=== PATIENT | male | born 1955 | race Caucasian/White ===

== ENCOUNTER 2025-02-08 14:54 | Emergency (ER) | payer MEDICARE, SELFPAY ==
--- NOTE | 2025-02-08 15:01 | ECG_ITS ---
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 Measurements Intervals [place] Rate: 88 P: 51 HI: 224 QRS: 11 QRSD: 154 T: 145 QT: 398 QTc: 482 Interpretive Statements SINUS RHYTHM WITH FIRST DEGREE AV BLOCK POSSIBLE LEFT ATRIAL ENLARGEMENT [-0.1mV P-WAVE IN V1/V2] LEFT BUNDLE BRANCH BLOCK [120+ ms QRS DURATION, 80+ ms Q/S IN V1/V2, 85+ ms R IN I/aVL/V5/V6] No previous ECG available for comparison Electronically Signed On 02-08-2025 21:51:38 SENIOR ACCOUNT EXECUTIVE by Tiffany Tyson M.D. [email or web address]
--- NOTE | 2025-02-08 15:01 | XR_ITS ---
WS: [id number] Portable AP upright chest, 02/08/2025 Clinical Data: Weakness Comparison: None. Findings: No nodules, masses or effusions are seen. The heart is normal. The pulmonary vascularity is not increased. No pneumonia or pneumothorax is seen. Midline sternotomy sutures are present and there is an artificial aortic valve. The descending thoracic aorta shows tortuosity. XR/XR chest 1V portable [id number] Impression: Atherosclerosis and artificial cardiac valve.
[2025-02-08 15:02] VITALS: BP 181/102; PULSE 91; TEMP 36.9; O2SAT 96; BMI 25.8
--- OUTSIDE RECORDS SUMMARY | 2025-02-08 15:04 | XMS_ITS ---
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 Past Treatment and Therapy Plans No past plan information found. Lifetime Dose Tracking * Chemical Lifetime Dose Automatic Entry Manual Entr y Radiation Dose Length Product 2,434.69 DLP 2,228.86 DL P 205.83 DLP
--- OUTSIDE RECORDS SUMMARY | 2025-02-08 15:04 | XMS_ITS | Clinical Summary ---
Author Organization [employer] Address [address] [place] [address] Care Team Providers Care Software Analyst Name Role Phone AsaEpi charles Primary Care Provider [phone] Source Comments This disclosure is being made pursuant to the [employer] program and maynot contain all information available regarding this patient.[employer] Allergies Active Allergy Reactions Criticality Noted Date Comments Bee Venom Swelling High 10/20/2024 Plegisol Anaphylaxis High 10/20/2024 Penicillins Swelling High 01/24/2017 Medications aspirin 81 MG EC tablet Take 81 mg by mouth daily. Active glucose blood test stripIndications:T ype 2 diabetes mellitus without complication, without long-term current use of insulin 1 (one) each by Other route daily. 100 each 3 01/17/20 Active Lancets MISCIndications:Ty pe 2 diabetes mellitus without complication, without long-term current use of insulin 1 (one) each by Other route daily. 100 each 3 01/17/20 Active Blood Glucose Monitoring Suppl DEVIIndications:Ty pe 2 diabetes mellitus without complication, without long-term current use of insulin 1 Device daily. 1 each 01/17/20 23 Active semaglutide, 2 MG/dose, (Ozempic, 2 MG/DOSE,) 8 MG/3ML injectionIndicatio ns:Type 2 diabetes mellitus with hyperglycemia, without long-term current use of insulin Inject 2 (two) mg into the skin once a week. 3 mL 03/17/20 25 Active fenofibrate (TRICOR) 54 MG tablet TAKE TWO TABLETS BY MOUTH EVERY DAY 180 tablet 3 08/21/19 25 Active warfarin (COUMADIN) 3 MG tabletIndications: Mechanical heart valve present,snf (current) use of anticoagulants TAKE ONE TABLET BY MOUTH EVERY DAY EXCEPT TAKE TWO TABLETS ON FRIDAY, FRIDAY, AND FRIDAY 36 tablet 11 09/01/19 25 Active losartan (COZAAR) 100 MG tabletIndications: Type 2 diabetes mellitus without complication, without long-term current use of insulin,Hypertensi on, unspecified type TAKE ONE TABLET BY MOUTH EVERY DAY 90 tablet 3 11/30/19 25 Active metformin (GLUCOPHAGE) 1000 MG tabletIndications: Type 2 diabetes mellitus without complication, without long-term current use of insulin Take 1 (one) tablet (1,000 mg total) by mouth 2 (two) times daily with meals. 180 tablet 3 12/28/19 25 Active carbidopa-levodopa (SINEMET) 25-100 MG per tablet 1 TABLET BY MOUTH 3 TIMES A DAY AT LEAST 30 MIN. BEFORE MEALS 270 tablet 01/04/20 25 Active glimepiride (AMARYL) 4 MG tablet TAKE TWO TABLETS BY MOUTH EVERY DAY 180 tablet 02/01/20 25 Active atorvastatin (LIPITOR) 80 MG tabletIndications: Hyperlipidemia, unspecified hyperlipidemia type TAKE ONE TABLET BY MOUTH AT BEDTIME 90 tablet 3 02/08/20 25 Active atorvastatin (LIPITOR) 80 MG tabletIndications: Hyperlipidemia, unspecified hyperlipidemia type TAKE ONE TABLET BY MOUTH AT BEDTIME 90 tablet 3 02/19/20 24 025 Discontinued glimepiride (AMARYL) 4 MG tablet TAKE TWO TABLETS BY MOUTH EVERY DAY 180 tablet 11/04/19 25 025 Discontinued Active Problems Problem Noted Date Diagnosed Date Bacteremia due to group B Streptococcus 10/22/19 25 Pyelonephritis 10/20/2024 Sepsis without acute organ dysfunction Parkinson's disease without dyskinesia or fluctuating manifestations 01/08/2024 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 snf (current) use of anticoagulants 2020 Mechanical heart valve present 11/08/2020 Prostate cancer 02/05/2011 Hypertension Hyperlipidemia Diabetes mellitus Encounters Date Type Department Care Team Description 02/06/2025 Refill [facility] [address] [place] [address] Epi Elder, DO Hyperlipidemia, unspecified hyperlipidemia type 02/02/2025 Telephone [facility] [address] [place] [address] Bren Cox, RN Telephone Call 01/29/2025 Refill [facility] [address] [place] [address] Epi Elder, DO 01/26/2025 Telephone [facility] [address] [place] [address] Rossy Arce, MATA Telephone Call 01/25/[address] [place] [address] Georgia Copeland Care Coordination 01/19/2025 Telephone [facility] [address] [place] [address] Rossy Arce, MATA Telephone Call 01/12/2025 Telephone [facility] [address] [place] [address] Rossy Arce, RN Telephone Call 01/03/[address] [place] [address] Terry Mancuso, CERTIFIED NURSING ATTENDANT Results [facility] [address], [address] [place] [address] Karen Alcocer MD 12/30/2024 2:30 PM CDT Procedure visit [facility] [address] [place] [address] Denis Clifford MD Bladder wall thickening (Primary Dx) 12/29/2024 Telephone [facility] [address] [place] [address] Bren Cox, RN Telephone Call 12/29/2024 Telephone [place] [address] [place], [place] [address] Vilma Blanco, PharmD Medication Management (Ozempic refill through [facility]) 12/29/2024 Telephone [place] [address] [place] [address] Rossy Arce, MATA Telephone Call 12/28/2024 8:33 AM CDT - 12/28/2024 11:59 PM CDT Hospital Encounter [facility] [address] [place] [address] [place] [address] Type 2 diabetes mellitus with other specified complication, without long-term current use of insulin; Primary hypertension; Prostate cancer Discharge Disposition: Home - Discharge to Home or Self Care 12/27/2024 1:00 PM CDT Office Visit [address] [address] Epi Elder, Type 2 diabetes mellitus with other specified complication, without long-term current use of insulin (Primary Dx); Warfarin anticoagulation; Supratherapeutic INR; Type 2 diabetes mellitus without complication, without long-term current use of insulin; 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] 12/27/2024 Travel 12/22/2024 Telephone [place] [address] [place] [address] Rossy Arce, MATA Telephone Call 12/15/2024 Telephone [place] [address] [place], [place] [address] Bren Cox, RN Telephone Call 12/10/2024 Results Follow-Up [address], [place] [address] Epi Elder DO Cologuard, Lipid panel, CBC and differential, Additional followed-up results: 3 12/08/2024 Telephone [place] [address] [place] [address] Bren oCx, RN Telephone Call 12/02/2024 10:00 AM CDT Initial consult [facility] [address] [place] [address] Denis Clifford MD Bladder wall thickening (Primary Dx) 12/01/2024 Travel 12/01/2024 Telephone [facility] [address] [place] [address] Bren Cox, RN Telephone Call 11/29/[address] [place] [address] Georgia Copeland Care Coordination 11/29/2024 Refill [facility] [address] [place] [address] Epi Elder, Type 2 diabetes mellitus without complication, without long-term current use of insulin; Hypertension, unspecified type 11/24/2024 Telephone [facility] [address] [place] [address] Georgia Copeland Care Coordination 11/24/2024 Telephone [facility] [address] [place] [address] Rossy Arce, MATA Telephone Call 11/23/[address] [place] [address] Georgia Copeland Care Coordination 11/17/2024 Telephone [facility] [address] [place] [address] Rossy Arce, MATA Telephone Call 11/11/2024 Telephone [facility] [address] [place] [address] Peggy Kim, RN Care Coordination from Last 3 Months Immunizations Immunization Administration Dates Next Due COVID-19 (MODERNA) mRNA ages 12+ 07/06/2020,03/0 08/2020 Influenza (FLUZONE HIGH-DOSE) IIV3 02/02/2024 Influenza (FLUZONE) IIV4, mu lti-dose vial 04/11/2022 Influenza (FLUZONE) Inactiva phil, Trivalent, 6 months and older, multi-dose vial 0.5 mL 12/16/2013,12/30/2012,12/11/2011,2009 Influenza, Inactivated, Quad rivalent, ALL AGES 6 months and older, multi-dose vial 01/09/2016 Influenza, inactivated, quad rivalent, 3 years and older, single dose syringe/vial 01/09/2016,12/16/2013,12/30/2012,2011,12/19/2009 Influenza, inactivated, quad rivalent, ALL AGES 6 months and older, single dose syringe/vial 11/27/2018,01/06/2018,01/08/2017,2014 Influenza, unspecified formulation 11/27,01/06/2018,01/08/2017,2015,01/19/2015,12/16/2013,12/30/2012,0 12/11/2011,12/19/2009 LIVE Zoster (Zostavax) ZVL 08/12/2012 Pneumococcal Conjugate-20 (P revnar 20) PCV20 12/28/2021 Pneumococcal Polysaccharide- 23 (Pneumovax 23) PPSV23 09/14/2014 Tdap 12/30/2012 Zoster (Shingrix) RZV 07/09/2018,03/18/2018 Family History Medical History Relation Name Comments Diabetes Father Heart disease Father Alzheimer's disease Mother Relation Name Status Comments Father Mother Social History Tobacco Use Types Packs/Day Years Used Date Smoking Tobacco: Never Smokeless Tobacco: Never Tobacco Cessation:Counseling Given: Not Answered Alcohol Use Standard Drinks/Week Comments Not Currently 0 (1 standard drink = 0.6 oz pur e alcohol) rarely PHQ-2 Answer Date Recorded PHQ-2 Total Score 0 12/27/2024 [place] Depression Scale Answer Date Recorded P[place] Depression Scale Total 0 10/20/2024 The thought of harming myself has occurred to me . Never 10/20/2024 Humiliation, Afraid, Rape, and Kick questionnair e Answer Date Recorded Within the last year, have y ou been afraid of your partner or ex-partner? No 10/20/2024 Within the last year, have y ou been humiliated or emotionally abused in other ways by your partner or ex-partner? No Within the last year, have y ou been kicked, hit, slapped, or otherwise physically hurt by your partner or ex-partner? No 10/20/2024 Within the last year, have y ou been raped or forced to have any kind of sexual activity by your partner or ex-partner? No 10/20/2024 Social Connection and Isolation Panel Answer Date Recorded In a typical week, how many times do you talk on the phone with family, friends, or neighbors? More than three times a week 10/20/2024 How often do you get togethe r with friends or relatives? Three times a week 10/20/2024 How often do you attend chur or church services? Never 10/20/2024 Do you belong to any clubs o r organizations such as methodist groups, unions, fraternal or athletic groups, or school groups? Yes 10/20/2024 How often do you attend meet ings of the clubs or organizations you belong to? More than 4 times per year 10/20/2024 Are you , , di vorced, , never , or living with a partner? 10/20/2024 AUDIT-C Answer Date Recorded Q1: How often do you have a drink containing alcohol? Never 10/20/2024 Q2: How many drinks containi ng alcohol do you have on a typical day when you are drinking? Patient does not drink Q3: How often do you have si x or more drinks on one occasion? Never 10/20/2024 Overall Financial Resource Strain (CARDIA) Answe r Date Recorded How hard is it for you to pa y for the very basics like food, housing, medical care, and heating? Not hard at all 10/20/2024 [facility] Occup[facility] ional [facility] - Occupational Stress Questionnaire Answer Date Recorded Do you feel stress - tense, restless, nervous, or anxious, or unable to sleep at night because your mind is troubled all the time - these days? Not at all 10/20/2024 Exercise Vital Sign Answer Date Recorde d On average, how many days pe r week do you engage in moderate to strenuous exercise (like a brisk walk)? 3 days 10/20/2024 On average, how many minutes do you engage in exercise at this level? 60 min 10/20/2024 Hunger Vital Sign Answer Date Recorded Within the past 12 months, y ou worried that your food would run out before you got the money to buy more. Never true 10/21/19 25 Within the past 12 months, t he food you bought just didn't last and you didn't have money to get more. Never true 10/20/2024 PRAPARE - Transportation Answer Date Re corded In the past 12 months, has l ack of transportation kept you from medical appointments or from getting medications? No 10/05 In the past 12 months, has l ack of transportation kept you from meetings, work, or from getting things needed for daily living? No 10/20/2024 Housing Stability Vital Sign Answer Casa e Recorded In the last 12 months, was t here a time when you were not able to pay the mortgage or rent on time? No 10/20/2024 In the past 12 months, how m any times have you moved where you were living? 0 10/20/2024 At any time in the past 12 m [facility], were you homeless or living in a [facility] (including now)? No 10/20/2024 [facility] Utilities Answer Date Recorded In the past 12 months has th e electric, gas, oil, or water company threatened to shut off services in your home? No 10/20/2024 Sex and Gender Information Value Date Recorded Sex Assigned at Not on file Legal Sex Male 5:04 AM CDT Gender Identity Not on file Sexual Orientation Not on file Occupation Industry Job Start Date Job End Date Not on file Not on file Not on file Not on file Last Filed Vital Signs Vital Sign Reading Time Taken Comments Blood Pressure 128/72 12/30/2024 2:26 PM CDT Pulse 88 12/30/2024 2:26 PM CDT Temperature 36.3 C (97.3 F) 12/30/2024 2:26 PM CDT Respiratory Rate 18 12/30/2024 2:26 PM CDT Oxygen Saturation 97% 12/30/2024 2:26 PM CDT Inhaled Oxygen Concentration - - Weight 74.4 kg (164 lb) 12/30/2024 2:26 PM CDT Height 172.7 cm (5' 8 ) 12/30/2024 2:26 PM CDT Body Mass Index 24.94 12/30/2024 2:26 PM CDT Plan of Treatment Upcoming Encounters Date Type Department Care Team (Late st Contact Info) Description 03/28/2025 9:00 AM AG SERVICE MANAGER Appointment [facility] [address] [place] [address] Epi Elder, DO [address] [place] [address] Health Maintenance Due Date Last Done Comments CT Colonography 1956 Colonoscopy 1956 Sigmoidoscopy 1956 FOBT/FIT 1976 Tetanus/Pertussis Vaccine Teen/Adult (2 - Td or Tdap) 12/30/2022 12/30/2012 First Medicare Annual Wellness (AWV) 07/02/2024 COVID-19 Vaccine ( season) 2024 07/06/2020, 06/09/2020 Influenza Vaccine (#1) 2024 , 04/11/2022, 11/27/2018, Additional history exists Foot Exam 02/01/2025 02/02/2024, 11/07, 12/28/2021, Additional history exists Lab-HgA1C 06/26/2025 12/27/2024, 09/06, 06/24/2024, Additional history exists Lab-Lipids 12/28/2025 12/28/2024, 12/07, 07/12/2022, Additional history exists Lab-Urine Microalbumin 12/28/2025 , 12/29/2023, 07/12/2022, Additional history exists Eye (Ophthalmology) Exam 06/05/2026 025, 03/12/2023, 09/03/2022, Additional history exists Colorectal Cancer Screening 12/03/2027 Fecal DNA Test 12/03/2027 12/02/2024, 11/06, 09/27/2021 RSV Adult (1 - 1-dose 75+ series) 08/10/2031 Zoster (Shingles) Vaccine 50+ Completed 07/09/2018, 03/18/2018, 08/12/2012 Lab-Hepatitis C Screening Completed 03/24/2019 Pneumococcal Vaccines 50+ Completed 12/28/2021, 01/2015 HIB Vaccine Aged Out No longer eligi ble based on patient's age to complete this topic HPV Vaccine (9-26yo & Shared Decision 27-45yo) Aged Out No longer eligible based on patient's age to complete this topic Hepatitis A Vaccine Aged Out No longe r eligible based on patient's age to complete this topic IPV Vaccine Aged Out No longer eligi ble based on patient's age to complete this topic Meningococcal Conjugate Vaccine Aged Out No longer eligible based on patient's age to complete this topic RSV < 20 Months Aged Out No longer el igible based on patient's age to complete this topic Goals Goal Patient Goal Type Associated Problems Recent Progress Patient-Stated? Author Blood Pressure < 140/90 Blood Pressure 128/72(12/30 2:26 PM CDT) No Lino Cox PA-C HEMOGLOBIN A1C < 7.0 Result Component No Mil Black RN Results - Maintain INR in 2.5-3.5 range Self-Managemen t No Renetta Boston RN Procedures Procedure Name Priority Date/Time Associated Diagnosis Comments OUTSIDE LAB SCANNED RESULT 02/04/2025 12:00 AM CDT OUTSIDE LAB SCANNED RESULT 02/02/2025 12:00 AM CDT OUTSIDE LAB SCANNED RESULT 01/26/2025 12:00 AM CDT OUTSIDE LAB SCANNED RESULT 01/19/2025 3:34 PM CDT OUTSIDE LAB SCANNED RESULT 01/12/2025 12:43 PM CDT OUTSIDE LAB SCANNED RESULT 01/06/2025 12:00 AM CDT POCT URINALYSIS Routine 12/30/2024 2:33 PM CDT Bladder wall thickening OUTSIDE LAB SCANNED RESULT 12/29/2024 12:00 AM CDT OUTSIDE LAB SCANNED RESULT 12/29/2024 12:00 AM CDT PSA Routine 12/28/2024 8:35 AM CDT Prostate cancer MICROALBUMIN / CREATININE URINE RATIO Routine 12/28/2024 8:35 AM CDT Type 2 diabetes mellitus with other specified complication, without long-term current use of insulin COMPREHENSIVE METABOLIC PANEL Routine 12/28/2024 8:35 AM CDT Type 2 diabetes mellitus with other specified complication, without long-term current use of insulin Primary hypertension CBC AND DIFFERENTIAL Routine 12/28/2024 8:35 AM CDT Primary hypertension LIPID PANEL Routine 12/28/2024 8:35 AM CDT Type 2 diabetes mellitus with other specified complication, without long-term current use of insulin Primary hypertension POCT GLYCOSYLATED HEMOGLOBIN (HGB A1C) Routine 12/27/2024 1:00 PM CDT Type 2 diabetes mellitus with other specified complication, without long-term current use of insulin POCT INR/PROTIME Routine 12/27/2024 12:5 4 PM CDT Warfarin anticoagulation OUTSIDE LAB SCANNED RESULT 12/22/2024 12:00 AM CDT OUTSIDE LAB SCANNED RESULT 12/15/2024 12:00 AM CDT OUTSIDE LAB SCANNED RESULT 12/08/2024 12:00 AM CDT COLOGUARD Routine 12/02/2024 11:30 AM CDT Colon cancer screening POCT URINALYSIS Routine 12/02/2024 10:10 AM CDT Bladder wall thickening OUTSIDE LAB SCANNED RESULT 12/01/2024 12:00 AM CDT OUTSIDE LAB SCANNED RESULT 12/01/2024 12:00 AM CDT OUTSIDE LAB SCANNED RESULT 11/24/2024 12:40 PM CDT OUTSIDE LAB SCANNED RESULT 11/17/2024 12:00 AM CDT OUTSIDE LAB SCANNED RESULT 11/11/2024 10:55 AM CDT DIABETES EYE EXAM Routine 06/05/2024 HEPATITIS C ANTIBODY Routine 03/24/2019 9:00 AM AG SERVICE MANAGER Encounter for hepatitis C screening test for low risk patient from Last 3 Months or Most Recently Relevant to Health Maintenance Results * OUTSIDE LAB SCANNED RESULT (02/04/2025 12:00 AM CDT) Only the most recent of16 resultswithin the time period is included. 02/04/2025 Narrative 02/07/2025 1:07 PM AG SERVICE MANAGER Ordered by an unspecified provider. us Not In System Provider LAB Final Res ult * (ABNORMAL) POCT UA (12/30/2024 2:33 PM CDT) Only the most recent of2 resultswithin the time period is included. Color, UA Yellow [facility] Clarity or appearance, UA Clear Clear [facility] Glucose, UA negative negative mg/dL [facility] Bilirubin, UA negative negative, trace (5 mg/dL), high 4+ [facility] Ketones, UA negative negative, trace (5 mg/dL), high 4+ [facility] Specific [place],UA POC 1.020 1.003 - 1.029 [facility] Blood, UA negative negative, HGB 10, HGB 50, HGB 250, MILENA 5-10, MILENA 50, MILENA 250 [facility] pH, UA POC 6.0 5.0 - 8.5 [facility] Protein, UA POC 30 (1+)(A) negative mg/dL [facility] Urobilinogen , UA POC 0.2 0.20 - 1.00 [Andrey'U]/dL [facility] Nitrite POC Negative Negative, Indeterminate [facility] Leukocytes, UA negative negative, trace (5 mg/dL), high 4+ [facility] Urine 12/30/2024 2:33 PM CDT us Denis Clifford MD POINT OF CARE TEST ORDERABLE S Final Result [facility] * (ABNORMAL) Microalbumin / creatinine urine ratio (12/28/2024 8:35 AM CDT) Microalbumin UR 2.3(H) 0.0 - 1.9 mg/dL 12/28/2024 10:59 PM CDT [facility] Microalbumin Excretion Rate NOT APPLICABLE 0 - 20 mg/24HR 12/28/2024 10:59 PM CDT [facility]ology Laboratory Albumin Rate NOT APPLICABLE 0 - 30 ug/min 12/28/2024 10:59 PM CDT [facility] Laboratory Microalbumin/Cre at Ratio 20.4(H) <17 mg/g[cre at] 12/28/2024 10:59 PM CDT [facility] Laboratory Creatinine Urine 112.1 mg/dL 12/29/19 10:59 PM CDT [facility] Comment: Reference Range Not Established Performed at [facility]ology Laboratory, [address] [facility] [place] [id number] Serum URINE SPECIMEN / Unknown 12/28/2024 8:35 AM CDT 12/28/2024 8:37 AM CDT us Epi Elder DO URINE ORDERABLES Final Resu lt [facility] [address] [place] [address] [facility] [address] [facility] [place] [address] * (ABNORMAL) CBC and differential (12/28/2024 8:35 AM CDT) WBC 4.43 3.6 - 9.8 10*3/uL 12/28/2024 8:42 AM [facility] RBC 4.53 3.50 - 5.90 10*6/uL 12/28/2024 8:42 AM [facility] HGB 13.6 11.2 - 17.3 g/dL 12/28/2024 8:42 AM [facility] HCT 41.7 33 - 51 % 12/28/2024 8:42 AM [facility] MCV 92.1 83 - 99 fL 12/28/2024 8:42 AM [facility] MCH 30.0 28 - 34 pg 12/28/2024 8:42 AM [facility] MCHC 32.6(L) 33 - 36 g/dL 12/28/2024 8:42 AM [facility] Platelets 160 152 - 367 10*3/uL 12/28/2024 8:42 AM [facility] RDW-CV 13.8 10 - 15 % 12/28/2024 8:42 AM [facility] MPV 9.4 7.0 - 11.0 fL 12/28/2024 8:42 AM [facility] Differential Type AUTOMATED DIFFERENTIAL 12/28/2024 8:42 AM [facility] Neutrophil % 62.6 % 12/28/2024 8:42 AM [facility] Lymphocytes % 21.7 % 12/28/2024 8:42 AM [facility] Monocyte % 12.9 % 12/28/2024 8:42 AM [facility] Eosinophils Relative % 1.8 % 12/28/2024 8:42 AM [facility] Basophils % 0.5 % 12/28/2024 8:42 AM [facility] Neutrophils Absolute 2.78 2.0 - 5.7 10*3/uL 12/28/2024 8:42 AM [facility] Lymphocytes Absolute 0.96 0.7 - 3.9 10*3/uL 12/28/2024 8:42 AM CDT [facility] Monos Absolute 0.57 0.2 - 0.9 10*3/uL 12/28/2024 8:42 AM CDT [facility] Eosinophils Absolute Count 0.08 0.0 - 0.8 10*3/uL 12/28/2024 8:42 AM CDT [facility] Basophils Absolute 0.02 0.0 - 0.2 10*3/uL 12/28/2024 8:42 AM CDT [facility] Immature Granulocytes% 0.5 % 12/28/2024 8:42 AM CDT [facility] Immature Granulocytes Absolute 0.02 10*3/uL 12/28/2024 8:42 AM CDT [facility] Whole Blood 12/28/2024 8:35 AM CDT 12/28/2024 8:37 AM CDT us Epi Elder DO LAB BLOOD ORDERABLES Final Result Performing Organization Address City/[facility]/ZIP Co de Phone Number [facility] [address] [place] [address] [facility] [address] [place] [id number] * PSA (12/28/2024 8:35 AM CDT) [facility] Signature PSA <0.1 0.0 - 4.0 ng/mL 12/28/2024 9:35 AM CDT [facility] Comment:PSA assays cannot be used interchangeably. Results from individual patients can vary between assays because of assay methods, calibration, and reagent specificity. Serum 12/28/2024 8:35 AM CDT 12/28/2024 8:37 AM CDT us Epi Elder DO LAB BLOOD ORDERABLES Final Result [facility] [address] [place] [address], [place] [phone] [facility] [address] [place] [id number] * Lipid panel (12/28/2024 8:35 AM CDT) Cholesterol 135 0 - 200 mg/dL 12/28/2024 9:06 AM [facility] Triglycerides 97 0 - 150 mg/dL 12/28/2024 9:06 AM [facility] HDL Cholesterol 52 40 - 60 mg/dL 12/28/2024 9:06 AM [facility] LDL, Calculated 64 0 - 99.99 mg/dL 12/28/2024 9:06 AM [facility] Cholesterol/HDL Ratio 2.6 12/28/2024 9:06 AM [facility] Serum 12/28/2024 8:35 AM CDT 12/28/2024 8:37 AM CDT us Epi Elder DO LAB BLOOD ORDERABLES Final Result Performing Organization Address City/State/[facility] Co de Phone Number [facility] [address] [place] [address] [facility] [address] [place] [id number] * (ABNORMAL) Comprehensive metabolic panel (12/28/2024 8:35 AM CDT) Sodium 136 134 - 145 mmol/L 12/28/2024 9:06 AM [facility] Potassium 4.3 3.5 - 5.1 mmol/L 12/28/2024 9:06 AM [facility] Chloride 104 98 - 107 mmol/L 12/28/2024 9:06 AM [facility] CO2 24 22 - 30 mmol/L 12/28/2024 9:06 AM [facility] Glucose 165(H) 74 - 106 mg/dL 12/28/2024 9:06 AM [facility] BUN 27(H) 9 - 20 mg/dL 12/28/2024 9:06 AM [facility] Creatinine 0.88 0.66 - 1.25 mg/dL 12/28/2024 9:06 AM [facility] Calcium 9.7 8.5 - 10.3 mg/dL 12/28/2024 9:06 AM [facility] Total Protein 6.9 6.3 - 8.2 g/dL 12/28/2024 9:06 AM [facility] Albumin 4.2 3.5 - 5.0 g/dL 12/28/2024 9:06 AM [facility] Bilirubin Total 0.9 0.2 - 1.3 mg/dL 12/28/2024 9:06 AM [facility] Alkaline Phosphatase 65 38 - 126 U/L 12/28/2024 9:06 AM [facility] AST 34 17 - 59 U/L 12/28/2024 9:06 AM [facility] ALT 32 0 - 50 U/L 12/28/2024 9:06 AM [facility] Anion Gap 8 mmol/L 12/28/2024 9:06 AM [facility] BUN/Creatinine Ratio 30.7 12/28/2024 9:06 AM [facility] Osmolality Calculated 291 mosm/kg 12/28/2024 9:06 AM [facility] Globulin 2.7 g/dL 12/28/2024 9:06 AM [facility] A/G Ratio 1.6 12/28/2024 9:06 AM [facility] Creatinine Based eGFR >90 >60 mL/min/[1. 73_m2] 12/28/2024 9:06 AM [facility] Comment:GFR >90 Normal or el evated GFR. Serum 12/28/2024 8:35 AM CDT 12/28/2024 8:37 AM CDT us Epi Elder DO LAB BLOOD ORDERABLES Final Result [facility] [address] [place] [address] [facility] [address] [place] [id number] * (ABNORMAL) POCT glycosylated hemoglobin (Hb A1C) (12/27/2024 1:00 PM CDT) Hemoglobin A1C 8.0(A) 3.8 - 6.2 % [facility] Blood 12/27/2024 1:00 PM CDT Epi Elder DO POINT OF CARE TEST ORDERABL ES Final Result [facility] * (ABNORMAL) POCT INR/PROTIME (12/27/2024 12:54 PM CDT) Protime,POC 59.3(A) 11.4 - 14.6 seconds [facility] INR, POC 4.9(A) <=4.5 [facility] Blood 12/27/2024 12:5 4 PM CDT Epi Elder DO POINT OF CARE TEST ORDERABL ES Final Result Performing Organization Address City/[facility]/ZIP Co de Phone Number [facility] * Cologuard (12/02/2024 11:30 AM CDT) Cologuard Negative Negative [employer] [facility] (CLIA #:[id number]) Comment: The Cologuard (TM) test was performed on this specimen. NEGATIVE TEST RESULT. A negative Cologuard result indicates a low likelihood that a colorectal cancer (CRC) or advanced adenoma (adenomatous polyps with more advanced pre-malignant features) is present. The chance that a person with a negative Cologuard test has a colorectal cancer is less than 1 in 1500 (negative predictive value >99.9%) or has an advanced adenoma is less than 5.3% (negative predictive value 94.7%). These data are based on a prospective cross-sectional study of 10,000 individuals at average risk for colorectal cancer who were screened with both Cologuard and colonoscopy. (Jero Dale, N Engl J Med 2014;370(14):6384-2847) The normal value (reference range) for this assay is negative. COLOGUARD RE-SCREENING RECOMMENDATION: Periodic colorectal cancer screening is an important part of preventive healthcare for asymptomatic individuals at average risk for colorectal cancer. Following a negative Cologuard result, the [place] [employer] Society and U.S. Multi-Society Task Force screening guidelines recommend a Cologuard re-screening interval of 3 years. References: [place] [employer] Guideline for Colorectal Cancer Screening: https://www.cancer.org/cancer/osvac-vqzqbp-eszyzu/ckhegeloh-uumtwyvow-msaidxl/ac s-rec ommendations.html.; Tenzin DK, Dioni DOUGLAS, Elmer PulliamK, Colorectal Cancer Screening: Recommendations for Physicians and Patients from the U.S. Multi-Society Task Force on Colorectal Cancer Screening , Am J Gastroenterology 2017; 112:9635-6106. TEST DESCRIPTION: Composite algorithmic analysis of stool DNA-biomarkers with hemoglobin immunoassay. Quantitative values of individual biomarkers are not reportable and are not associated with individual biomarker result reference ranges. Cologuard is intended for colorectal cancer screening of adults of either sex, 45 years or older, who are at average-risk for colorectal cancer (CRC). Cologuard has been approved for use by the U.S. FDA. The performance of Cologuard was established in a cross sectional study of average-risk adults aged 50-84. Cologuard performance in patients ages 45 to 49 years was estimated by sub-group analysis of near-age groups. Colonoscopies performed for a positive result may find as the most clinically significant lesion: colorectal cancer [4.0%], advanced adenoma (including sessile serrated polyps greater than or equal to 1cm diameter) [20%] or non- advanced adenoma [31%]; or no colorectal neoplasia [45%]. These estimates are derived from a prospective cross-sectional screening study of 10,000 individuals at average risk for colorectal cancer who were screened with both Cologuard and colonoscopy. (Jero Lawson et al, N Engl J Med 2014;370(14):5294-3920.) Cologuard may produce a false negative or false positive result (no colorectal cancer or precancerous polyp present at colonoscopy follow up). A negative Cologuard test result does not guarantee the absence of CRC or advanced adenoma (pre-cancer). The current Cologuard screening interval is every 3 years. ([place] Cancer Society and U.S. Multi-Society Task Force). Cologuard performance data in a 10,000 patient pivotal study using colonoscopy as the reference method can be accessed at the following location: www.[employer]/results. Additional description of the Cologuard test process, warnings and precautions can be found at www.cologuard.com. Stool 12/02/2024 11:3 0 AM CDT 12/03/2024 11:33 AM CDT us Epi Elder DO LAB SEND OUT ORDERABLES Fin al Result [facility] [address] [place] [address] ERN (CLIA #:[id number]) [address] [place] [address] * Diabetes eye exam (06/05/2024) DM EYE EXAM No Diabetic Retinopathy [facility] Comment:See scanned document from [facility] us Not In System Provider HEALTH MAINTENANCE Final Result Performing Organization Address [facility] Co de Phone Number [facility] [address] [place] [address] * Hepatitis C antibody (03/24/2019 9:00 AM AG SERVICE MANAGER) Hep C Ab NONREACTIVE NR 03/24/2019 7:13 PM AG SERVICE MANAGER [facility] Comment:Performed at [facility], [address] [place] [address] Blood specimen (specimen) 03/24/2019 9:00 AM AG SERVICE MANAGER 03/24/2019 9:07 AM AG SERVICE MANAGER us Lino Cox PA-C LAB BLOOD ORDERABLES Fi nal Result Performing Organization Address City/[facility] Co de Phone Number [facility] [address] [place] [address] [facility] [address] [place] [address] from Last 3 Months or Most Recently Relevant to Health Maintenance Insurance BLUE CROSS MEDICARE BLUE PPO BLUE CROSS MEDICARE BLUE PPO Advance Directives Documents on File Type Date Recorded Patient Human Resource Advisor Expl anation ACP Living Will and POA Health 10/21/2024 2PG * Full Code (Latest Code Status on File) Date Activated Date Inactivated Comments 10/20/2024 2:16 PM 10/24/2024 1:50 PM Care Teams Software Analyst Relationship Specialty Start Date End Date Epi Elder DO [address] [place] [address] PCP - General Family Medicine 02/14/22
--- OUTSIDE RECORDS SUMMARY | 2025-02-08 15:04 | XMS_ITS | Encounter Summary ---
Author Organization [employer] Address [address] [place] [address] Care Team Providers Care Endocrinology Teacher Name Role Phone Epi Elder DO Primary Care Provider [phone]- [phone] Reason for Visit * Reason Onset Date Comments Telephone Call 10/08/2023 Encounter Details Date Type Department Care Team ([facility] st Contact Info) Description 10/08/2023 Telephone [facility] [address] [place] [id number] Bren Cox RN [address] [address] Telephone Call Social History Tobacco Use Types Packs/Day Years Used Date Smoking Tobacco: Never Smokeless Tobacco: Never Alcohol Use Standard Drinks/Week Comments Yes 0 (1 standard drink = 0.6 oz pur e alcohol) rarely PHQ-2 Answer Date Recorded PHQ-2 Total Score 0 07/03/2023 Sex and Gender Information Value Date Recorded Sex Assigned at Not on file Legal Sex Male 5:04 AM CDT Gender Identity Not on file Sexual Orientation Not on file Occupation Industry Job Start Date Job End Date Not on file Not on file Not on file Not on file documented as of this encounter Miscellaneous Notes * Telephone Encounter - Bren Quintana RN - 10/08/2023 1:06 PM CDT Pt aware. States understanding and denies questions at this time. * Telephone Encounter - Epi Elder DO - 10/08/2023 11:50 AM CDT Please call Reji - his INR today was a little below goal at 2.2 - this is due to holding his coumadin for two days last week. His goal is 2.5-3.5 due to his mechanical heart valve. He should continue his regular dosing of coumadin now and repeat his INR in one week. If his INR Is ever between 3.5 and 4.5 in the future - he should not change his dose but just repeat his INR 7 days later. Thanks! * Telephone Encounter - Bren Quintana RN - 10/08/2023 11:04 AM CDT Spoke w/ pt's regarding previous message. Pt's states that pt's INR was 2.2 today. Per Pavel, pt did not take any coumadin on Friday and of last week. Pt took 6mg on Friday and 3 mg on Friday, Friday, Friday, and Friday. Pt's states to leave a message w/ further instructions if pt does not answer the phone. * Telephone Encounter - Bren Quintana RN - 10/08/2023 11:04 AM CDT ----- Message from Natalie Bello sent at 10/08/2023 10:26 AM CDT ----- Regarding: INR results Provider: Dr Elder, RE: INR results Who Called? Patient Donte called [phone], he would like to find out the results of his INR test. Please call him. Thank you Natalie documented in this encounter Plan of Treatment Upcoming Encounters Date Type Department Care Team (Late st Contact Info) Description 03/28/2025 9:00 AM TRANSFER AGENT Appointment [facility] [address] [place] [address] Epi Elder DO [address] [place] [address] documented as of this encounter Goals Goal Patient Goal Type Associated Problems Recent Progress Patient-Stated? Author Blood Pressure < 140/90 Blood Pressure 128/72(12/30 2:26 PM CDT) No Lino Cox PA-C HEMOGLOBIN A1C < 7.0 Result Component No Mil Black RN Results - Maintain INR in 2.5-3.5 range Self-Managemen t No Renetta Boston RN documented as of this encounter Procedures Procedure Name Priority Date/Time Associated Diagnosis Comments PROTIME-INR Routine 10/08/2023 documented in this encounter Results * Protime-Inr (10/08/2023) INR 2.20 [facility] Blood BLOOD SPECIMEN / Unknown us Not In System Provider LAB BLOOD ORDERABLES Bernadette braxton Result [facility] documented in this encounter Visit Diagnoses Not on filedocumented in this encounter Additional Health Concerns Assessment Noted Time A fall risk assessment has been complete d for the patient 07/03/2023 7:40 AM CDT A Body Mass Index follow-up plan has been documented for the patient 07/03/2023 8:58 AM CDT documented as of this encounter Care Teams Endocrinology Teacher Relationship Specialty Start Date End Date Epi Elder DO [address] [place] [address] PCP - General Family Medicine 02/14/22 documented as of this encounter
--- OUTSIDE RECORDS SUMMARY | 2025-02-08 15:04 | XMS_ITS | Encounter Summary ---
Author Organization [employer] Address [address] [place] [address] Care Team Providers Care Document Image Technician Name Role Phone Epi Elder DO Primary Care Provider [phone]- [phone] Reason for Visit * Reason Comments Medication Refill Encounter Details Date Type Department Care Team ([facility] st Contact Info) Description 02/06/2025 Refill [facility] [address] [place] [address] Epi Elder DO [address] [place] [address] Hyperlipidemia, unspecified hyperlipidemia type Social History Tobacco Use Types Packs/Day Years Used Date Smoking Tobacco: Never Smokeless Tobacco: Never Alcohol Use Standard Drinks/Week Comments Not Currently 0 (1 standard drink = 0.6 oz pur e alcohol) rarely PHQ-2 Answer Date Recorded PHQ-2 Total Score 0 12/27/2024 [place] Depression Scale Answer Date Recorded [place] Depression Scale Total 0 10/20/2024 The thought [...] How often do you attend chur or episcopal services? Never 10/20/2024 Do you belong to any clubs o r organizations such as hoahaoism groups, unions, fraternal or athletic groups, or [...] and heating? Not hard at all 10/20/2024 [facility] [place] of Occupat ional Health - Occupational Stress [...] any time in the past 12 m [facility], were you homeless or living in a chcf (including now)? No 10/20/2024 [facility] Utilities Answer Date Recorded In the [...] on file documented as of this encounter Functional Status * Are you deaf or do you have serious difficulty hearing? Answer Date of Assessment Author No 01/08/2024 4:08 PM CDT Sherry Estrada RN * Are you blind or do you have serious difficulty seeing, even when wearing glasses? Answer Date of Assessment Author No 01/08/2024 4:08 PM DARWINT Sherry Estrada RN * Do you have serious difficulty walking or climbing stairs? (5 years old or older) Answer Date of Assessment Author No 01/08/2024 4:08 PM DARWINT Sherry Estrada RN * Do you have difficulty dressing or bathing? (5 years old or older) Answer Date of Assessment Author No 01/08/2024 4:08 PM CDT Sherry Estrada RN * Because of a physical, mental, or emotional condition, do you have difficulty doing errands alone such as visiting a doctor's office or shopping? (15 years old or older) Answer Date of Assessment Author No 01/08/2024 4:08 PM CDT Sherry Estrada RN documented as of this encounter Mental Status * Because of a physical, mental, or emotional condition, do you have serious difficulty concentrating, remembering, or making decisions? (5 years old or older) Answer Entry Date Author No 01/08/2024 4:08 PM CDT Sherry Estrada RN documented in this encounter Plan of Treatment Upcoming Encounters Date Type Department Care Team ([facility] st Contact Info) Description 03/28/2025 9:00 AM TORCH BURNER Appointment [facility] [address] [place] [address] Epi Elder DO [address] [place] [address] documented as of this encounter Goals Goal Patient Goal Type Associated Problems Recent Progress Patient-Stated? Author Blood Pressure < 140/90 Blood Pressure 128/72(12/30 2:26 PM CDT) No Lino Cox PA-C HEMOGLOBIN A1C < 7.0 Result Component No Mil Black RN Results - Maintain INR in 2.5-3.5 range Self-Managemen t No Renetta Boston RN documented as of this encounter Visit Diagnoses Diagnosis Hyperlipidemia, unspecified hyperlipidemia type documented in this encounter Additional Health Concerns Assessment Noted Time A fall risk assessment has been complete d for the patient 01/08/2024 4:08 PM CDT A Body Mass Index follow-up plan has been documented for the patient 07/03/2023 8:58 AM CDT documented as of this encounter Care Teams Document Image Technician Relationship Specialty Start Date End Date Epi Elder DO [address] [place] [address], [place] [address] PCP - General Family Medicine 02/14/22 documented as of this encounter
--- OUTSIDE RECORDS SUMMARY | 2025-02-08 15:04 | XMS_ITS | Encounter Summary ---
Author Organization [employer] Address [address] [place] [address] Care Team Providers Care Trust Manager Assistant Name Role Phone Epi Elder DO Primary Care Provider [phone]- [phone] Reason for Visit * Reason Onset Date Comments Telephone Call 02/02/2025 Encounter Details Date Type Department Care Team ([facility] st Contact Info) Description 02/02/2025 Telephone [facility] [address] [place], [place] [id number] Bren Cox, RN [address] [place] [address] Telephone Call Social History Tobacco Use Types Packs/Day Years Used Date Smoking Tobacco: Never Smokeless Tobacco: Never Alcohol Use Standard Drinks/Week Comments Not Currently 0 (1 standard drink = 0.6 oz pur e alcohol) rarely PHQ-2 Answer Date Recorded PHQ-2 Total Score 0 12/27/2024 [place] Depression Scale Answer Date Recorded [place] Depression Scale Total 0 10/20/2024 The thought [...] How often do you attend chur or sikhism services? Never 10/20/2024 Do you belong to any clubs o r organizations such as scientology groups, unions, fraternal or athletic groups, or [...] and heating? Not hard at all 10/20/2024 [facility] [place] of Occupat ional Health - Occupational Stress [...] any time in the past 12 m [facility], were you homeless or living in a care home (including now)? No 10/20/2024 [facility] Utilities Answer Date Recorded In the [...] 4:08 PM CDT Sherry Estrada RN * Do you have [...] Sherry Estrada RN documented in this encounter Miscellaneous Notes * Telephone Encounter - Bern Cox RN - 02/02/2025 1:51 PM CDT Pt informed of POC. States understanding and is agreeable to POC. Denies questions at this time. * Telephone Encounter - Epi Elder DO - 02/02/2025 1:05 PM CDT No changes to his Coumadin Regimen - last week his INR was 2.6. Repeat INR in one week. Thanks! * Telephone Encounter - Bren Cox RN - 02/02/2025 1:02 PM CDT ----- Message from Libia Zapata sent at 02/02/2025 12:56 PM CDT ----- Regarding: INR Provider: Dr. Elder, RE: INR INR today 3.8 Please call him with any instructions: [phone] He is having trouble with cell secretary receptionist today, so if you need to, you may text this number. Thank you, Libia documented in this encounter Plan of Treatment Upcoming Encounters Date Type Department Care Team (Late st Contact Info) Description 03/28/2025 9:00 AM DURALUMIN MECHANIC Appointment [facility] [address] [place] [address] Epi Elder DO [address] [place] [address] documented as of this encounter Goals Goal Patient Goal Type Associated Problems Recent Progress Patient-Stated? Author Blood Pressure < 140/90 Blood Pressure 128/72(12/30 2:26 PM CDT) No Lino Cox PA-C HEMOGLOBIN A1C < 7.0 Result Component No Mil Black RN Results - Maintain INR in 2.5-3.5 range Self-Managemen t No Renetta Boston RN documented as of this encounter Visit Diagnoses Not on filedocumented in this encounter Additional Health Concerns Assessment Noted Time A fall risk assessment has been complete d for the patient 01/08/2024 4:08 PM CDT A Body Mass Index follow-up plan has been documented for the patient 07/03/2023 8:58 AM CDT documented as of this encounter Care Teams Trust Manager Assistant Relationship Specialty Start Date End Date Epi Elder DO [address] [place] [address] PCP - General Family Medicine 02/14/22 documented as of this encounter
[2025-02-08 15:13] VITALS: BP 174/86; PULSE 92; TEMP 36.9; O2SAT 97
--- NOTE | 2025-02-08 15:19 | ED_ITS ---
HPI - Dizziness 2 General: Chief Complaint: Dizziness Stated Complaint: Lightheaded dizzy fell Time Seen by Provider: 02/08/25 15:19 History of Present Illness: HPI Narrative: 69-year-old man with history of hyperlip idemia, hypertension, Parkinson's, diabetes and mechanical aortic valve replacement on chronic anticoagulation with Coumadin who presents to the emergency room with a near syncopal episode and lightheadedness. He is hypertensive on presentation. He said he woke up feeling a little bit lightheaded. He says whenever he was sitting on a mule he got off and got very lightheaded and felt so weak that he collapsed. He did not injure anything. No fevers. No chest pain. No abdominal pain. No palpitations. No lower extremity swelling. No altered mental status. No focal motor deficits. Related Data Home Medications ?Medication ?Instructions ?Recorded ?Confirmed Total Beet Juice 2 tab PO DAILY 02/08/2507/30 acetaminophen 500 mg tablet 1,000 mg PO Q6H PRN Fever Or Pain 02/08/25 02/08/25 (Tylenol Extra Strength) atorvastatin 80 mg tablet 80 mg PO DAILY 02/08/2507/30 carbidopa 25 mg-levodopa 100 mg 1 tab PO TID 02/08/25 02/08/25 tablet cholecalciferol (vitamin D3) 50 50 mcg PO DAILY 02/08/25 mcg (2,000 unit) tablet (Vitamin D3) fenofibrate 54 mg tablet 108 mg PO DAILY 02/08/2507/30 glimepiride 4 mg tablet 8 mg PO DAILY 02/08/2502/08 losartan 100 mg tablet 100 mg PO DAILY 02/08/2507/30 metformin 1,000 mg tablet See Rx Instructions .Route . COMPLEX 02/08/25 02/08/25 psyllium husk 3.4 gram/5.4 gram 1 tbsp PO DAILY 02/08/25 oral powder (Metamucil) warfarin 3 mg tablet See Rx Instructions .Route . COMPLEX 02/08/25 02/08/25 Allergies Allergy/AdvReac Type Severity Reaction Status Date / Time Penicillins Allergy Unknown Verified 02/08/25 15:14 Review of Systems 2 Narrative: Constitutional symptoms: Negative except as documented in HPI. Skin symptoms: Negative except as documented in HPI. Eye symptoms: Negative except as documented in HPI. ENMT symptoms: Negative except as documented in HPI. Respiratory symptoms: Negative except as documented in HPI. Cardiovascular symptoms: Negative except as documented in HPI. Gastrointestinal symptoms: Negative except as documented in HPI. Genitourinary symptoms: Negative except as documented in HPI. Musculoskeletal symptoms: Negative except as documented in HPI. Neurologic symptoms: Negative except as documented in HPI. Psychiatric symptoms: Negative except as documented in HPI. Endocrine symptoms: Negative except as documented in HPI. Physical Exam 2 Narrative: EXAM NARRATIVE: General: Alert, no acute distress. Skin: Warm, dry. Head: Normocephalic, atraumatic. Neck: Supple, trachea midline. Eye: Extraocular movements are intact. Ears, nose, mouth and throat: mucosa moist. Cardiovascular: Regular, Normal peripheral perfusion. Respiratory: Lungs are clear to auscultation, respirations are non-labored, breath sounds are equal, Symmetrical chest wall expansion. Gastrointestinal: Soft, Nontender, Non distended Musculoskeletal: Normal ROM, no deformity. Neurological: Alert and oriented, No focal neurological deficit observed. Psychiatric: Cooperative, appropriate mood & affect. Course 2 Vital Signs: Vital signs: Vital Signs Temperature 98.5 F 02/08/25 15:13 Pulse Rate 85 02/08/25 18:24 Blood Pressure 135/75 02/08/25 18:24 Pulse Oximetry 96 02/08/25 18:24 Oxygen Delivery Me thod Room Air 02/08/25 16:30 MDM - Dizziness Medical Decision Making Medical decision making: Patient's reason for coming to the emergency room Social determinants: Patient is retired. I reviewed the patient's medical record. Patient has not had any previous visits to this emergency room. I reviewed the patient's current home meds Medications were updated here today. Patient has hyperlipidemia and takes atorvastatin. Diabetes and takes metformin. And glipizide. Hypertension takes losartan. Patient also had a mitral valve replacement and is on Coumadin. Alternate historians: is in the room. She witnessed the event and provides some history. Differential diagnosis including but not limited to and based on the above HPI, review of systems and physical exam in this patient with syncope: Vasovagal, orthostatics hypotension, cardiac dysrhythmia, myocardial infarction, infection and hypotension, Orders placed to evaluate differential diagnosis based on the above differential, HPI and physical exam EKG: Time 1507. Rate 88. Normal sinus rhythm, No ST-T changes, no ectopy, left bundle branch block, This was reviewed and interpreted by myself the ER physician at 1510. Patient has had a mitral valve replacement and has had no chest pain today so it is most likely this left bundle branch block is old. Chest x-ray: Heart valve visible. No acute process. No infiltrate. No pneumothorax. This was reviewed and interpreted by myself the emergency room physician. I also reviewed the radiology report. Lab Review: Laboratory results were reviewed and interpreted by myself the emergency room physician. No leukocytosis. No anemia. No renal failure. Serial cardiac markers are negative. Urine is negative for infection but does show some concentration which would indicate some dehydration. Also his blood sugar is high so fluids were given for both of these. Think maybe his syncope was secondary to dehydration and hyperglycemia. He had gone from a sitting position to standing Assessment of risk: Level of risk: Moderate to high risk patient. Multiple comorbidities and anticoagulation. Hospitalization considerations: I did not find any indications for hospitalization today. Reexamination: Patient remained stable. No increased work of breathing. No altered mental status. No focal motor deficits. I discussed findings with the patient and discussed that he needs to see with his PCP to make sure he keeps his sugars better under control. Assessment and plan: Syncope Dehydration Hyperglycemia ?Normal saline bolus in the emergency room - Discharged home - Discussed plan with patient. Answered any questions. - Evaluation and treatment of this problem were appropriate in the emergency setting. Lab Data 02/08/25 15:02/08/25 15: Radiology Impressions Chest X-Ray 02/08/25 15:01 Impression: Atherosclerosis and artificial cardiac valve. Laboratory Results WBC 4.52 10^3/uL (3.29-11.43) 02/08/25 15: RBC 4.42 10^6/uL (3.85-5.65) 02/08/25 15: Hgb 13.10 g/dL (11.27-16.99) 02/08/25 15: Hct 39.9 % (37-53) 02/08/25 15: MCV 90.3 fl (82-101) 02/08/25 15: MCH 29.6 pg (27-33) 02/08/25 15: MCHC 32.8 g/dL (30-55) 02/08/25 15: RDW 13.6 % (12.1-15.1) 02/08/25 15: Plt Count 148 10^3/cmm (157-399) L 02/08/25 15: MPV 9.7 fL (7.4-10.4) 02/08/25 15: Neut % (Auto) 71.2 % 02/08/25 15: Lymph % (Auto) 15.0 % 02/08/25 15: [place] % (Auto) 12.2 % 02/08/25 15: Eos % (Auto) 0.7 % 02/08/25: Baso % (Auto) 0.7 % 02/08/25: Neut # (Auto) 3.22 10^3/uL (1.8-7.7) 02/08/25 15: Lymph # (Auto) 0.7 10^3/uL (0.8-4.8) L 02/08/25: [place] # (Auto) 0.6 10^3/uL (0.2-0.9) 02/08/25 15: Eos # (Auto) 0.0 10^3/uL (0.0-0.8) 02/08/25: Baso # (Auto) 0.0 10^3/uL (0.0-0.1) 02/08/25 15: Nucleated RBC % (auto) 0 % 02/08/25: Nucleated RBCs # 0.0 /100WBC 02/08/25 15: PT 35.40 SECONDS (12.1-14.9) H 02/08/25 15: INR 3.30 (0.8-1.2) H 02/08/25: APTT 43.6 SECONDS (23.9-36.7) H 02/08/25 15: Sodium 140 mmol/L (136-145) 02/08/25 15: Potassium 4.4 mmol/L (3.5-5.1) 02/08/25 15: Chloride 105 mmol/L (98-107) 02/08/25 15: Carbon Dioxide 24 mmol/L (22-29) 02/08/25 15: Anion Gap 15.4 (5-19) 02/08/25 15: BUN 18 mg/dL (8-23) 02/08/25 15: Creatinine 0.8 mg/dL (0.7-1.2) 02/08/25 15: GFR Calculation 96.1 mL/min (90-130) 02/08/25 15: Glucose 286 mg/dL (65-115) H 02/08/25 15: Calculated Osmolality 302 mOsm/kg (285-295) H 02/08/25 15: Lactic Acid 2.5 mmol/L (0.5-2.2) H 02/08/25 15: Calcium 9.6 mg/dL (8.5-10.5) 02/08/25 15: Total Bilirubin 0.4 mg/dL (0.15-1.2) 02/08/25 15: AST 29 U/L (0-40) 02/08/25 15: ALT 31 U/L (0-41) 02/08/25 15: Alkaline Phosphatase 75 U/L (40-130) 02/08/25 15:28 Troponin T Baseline 24 ng/L (0-15) H 02/08/25 15:28 Troponin T 120 Minute 22.11 ng/L (0-15) H 02/08/25 16:57 Delta Troponin T -1.89 ABS# (0-10) L 02/08/25 16:57 Total Protein 6.4 g/dL (6.6-8.7) L 02/08/25 15: Albumin 4.4 g/dL (3.5-5.2) 02/08/25 15: Globulin 2.0 g/dL (1.3-4.6) 02/08/25 15:28 Urine Color Yellow (Yellow) 02/08/25 15:37 Urine Appearance Clear (CLEAR) 02/08/25 15: Urine pH 6.0 (5-7) 02/08/25 15:37 Ur Specific [place] 1.032 (1.005-1.030) H 02/08/25 15:37 Urine Protein Negative (Negative) 02/08/25 15:37 Urine Glucose (UA) 3+ (Normal) H 02/08/25 15:37 Urine Ketones Trace (Negative) 02/08/25 15:37 Urine Blood Negative (Negative) 02/08/25 15:37 Urine Nitrate Negative (Negative) 02/08/25 15:37 Urine Bilirubin Negative (Negative) 02/08/25 15:37 Urine Urobilinogen 1.0 mg/dL (Negative) 02/08/25 15:37 Ur Leukocyte Esterase Negative (Negative) 02/08/25 15:37 Urine RBC 0-2 /hpf (0-2) 02/08/25 15:37 Urine WBC 0-5 /hpf (0-5) 02/08/25 15:37 Ur Squamous Epith Cells 0-5 /hpf (0-5) 02/08/25 15:37 Amorphous Sediment Not Reportable 02/08/25 15:37 Urine Bacteria None seen /hpf (NONE) 02/08/25 15:37 Hyaline Casts 0-4 /lpf H 02/08/25 15:37 Influenza A (PCR) Negative (Negative) 02/08/25 15:33 Influenza Type B (PCR) Negative (Negative) 02/08/25 15:33 RSV (PCR) Negative (Negative) 02/08/25 15:33 SARS-CoV-2 (PCR) Negative (Negative) 02/08/25 15:33 All radiology interpretation(s) finalized by discharge Discharge Plan Discharge Patient Disposition: Home Clinical Impression: Near syncope, Hyperglycemia, Dehydration Condition: Stable Prescriptions: No Action atorvastatin 80 mg tablet 80 mg PO DAILY glimepiride 4 mg tablet 8 mg PO DAILY carbidopa-levodopa 25-100 mg tablet 1 tab PO TID losartan 100 mg tablet 100 mg PO DAILY fenofibrate 54 mg tablet 108 mg PO DAILY acetaminophen [Tylenol Extra Strength] 500 mg Tablet 1,000 mg PO Q6H PRN (Reason: Fever Or Pain) warfarin 3 mg tablet See Rx Instructions .ROUTE .COMPLEX Rx Instructions: TAKE ONE TABLET BY MOUTH EVERY DAY EXCEPT TAKE TWO TABLETS ON FRIDAY, FRIDAY, AND FRIDAY metformin 1,000 mg tablet See Rx Instructions .ROUTE .COMPLEX Rx Instructions: TAKE ONE TABLET BY MOUTH EVERY MORNING AND ONE AND ONE-HALF AT BEDTIME cholecalciferol (vitamin D3) [Vitamin D3] 50 mcg (2,000 unit) Tablet 50 mcg PO DAILY Metamucil 3.4 gram/5.4 gram Powder 1 tbsp PO DAILY Rx Instructions: mix into at least 8 oz of water or juice before administering Total Beet Juice 2 tab PO DAILY Discharge Orders: Discharge ED (Routine); Ordered 02/08/25 Ordered By: Key Monique Discharge Diet: Usual diet Discharge Activity: Increase activity as tolerated Patient Instructions: Syncope (ED), Diabetic Hyperglycemia (ED), Opioid Safety, Pain Management, Patient Portal & Debbi Instructions Activity Restrictions/Additional Instructions: Thank you for choosing [facility] for your healthcare needs today. You have been screened and evaluated and felt safe for discharge. Health conditions do change or evolve sometimes and as such it is important that you follow up with your Primary Doctor to be re checked, 3-5 days is a general good time frame for follow up. You are always welcome to return to the ED for re assessment if your symptoms are worsening or you have new concerns Print Language: Tamazight Coding Level of Care Code ED Student Finance Advisor for Ebonie Davies
[2025-02-08 15:43] VITALS: BP 159/94; PULSE 93; O2SAT 97
[2025-02-08 16:04] LABS: Hematocrit 39.9 % (37-53); Hemoglobin 13.10 g/dL (11.27-16.99); Mean Corpuscular HGB Conc 32.8 g/dL (30-55); Mean Corpuscular Hemoglobin 29.6 pg (27-33); Mean Corpuscular Volume 90.3 fl (82-101); Nucleated Red Blood Cells % 0 %; Platelet Count 148 10^3/cmm (157-399); Red Blood Count 4.42 10^6/uL (3.85-5.65); White Blood Count 4.52 10^3/uL (3.29-11.43)
[2025-02-08 16:09] LABS: Glucose Urine UA 3+ (Normal); Nitrate Urine Negative (Negative)
[2025-02-08 16:13] VITALS: BP 146/77; PULSE 88; O2SAT 93
[2025-02-08 16:25] LABS: Alanine Aminotransferase 31 U/L (0-41); Albumin Level 4.4 g/dL (3.5-5.2); Alkaline Phosphatase 75 U/L (40-130); Anion Gap 15.4 (5-19); Aspartate Amino Transferase 29 U/L (0-40); Blood Urea Nitrogen 18 mg/dL (8-23); Calcium 9.6 mg/dL (8.5-10.5); Carbon Dioxide 24 mmol/L (22-29); Chloride 105 mmol/L (98-107); Creatinine Clr Calc Pharmacy 89.8555; Globulin 2.0 g/dL (1.3-4.6); Glucose 286 mg/dL (65-115); Osmolality Calculated 302 mOsm/kg (285-295); Potassium 4.4 mmol/L (3.5-5.1); Sodium 140 mmol/L (136-145); Total Protein 6.4 g/dL (6.6-8.7)
[2025-02-08 16:26] LABS: Lactic Sepsis W/Reflex 2.5 mmol/L (0.5-2.2)
[2025-02-08 16:29] LABS: Specific Gravity, Urine 1.032 (1.005-1.030)
[2025-02-08 16:29] LABS: INR 3.30 (0.8-1.2); Partial Thromboplastin Time 43.6 SECONDS (23.9-36.7); Prothrombin Time 35.40 SECONDS (12.1-14.9)
[2025-02-08 16:30] VITALS: BP 123/78; PULSE 94; O2SAT 95
[2025-02-08 16:33] LABS: Troponin(5th) Baseline 24 ng/L (0-15)
[2025-02-08 16:44] LABS: Respiratory Syncytial Virus Ce NEGATIVE (Negative); SARS-CoV-2 PCR NEGATIVE (Negative)
[2025-02-08 17:24] LABS: Reflex Lactate Order REFLEX LACTIC ORDERD
[2025-02-08 17:41] LABS: Troponin 5 2HR 22.11 ng/L (0-15); Troponin 5 2HR Delta -1.89 ABS# (0-10)
[2025-02-08 18:24] VITALS: BP 135/75; PULSE 85; O2SAT 96
== END 2025-02-08 18:25 | disposition home or self-care (01) ==
PROVIDERS: Emergency Provider Emergency Medicine
DX: R55 Syncope and collapse (principal); E86.0 Dehydration; R73.9 Hyperglycemia, unspecified; Z79.01 Long term (current) use of anticoagulants; Z11.52 Encounter for screening for COVID-19
CPT/HCPCS: 36415; 71045; 80053; 81001; 83605; 84484; 85025; 85610; 85730; 87040; 87637; 93005; 99285; J7030